=== PATIENT | male | born 1985 | race African-American/Black ===

== ENCOUNTER 2016-11-17 14:22 | Emergency (ER) | payer MEDICAID ==
[~2016-11-17] VITALS: Ht 172.7 cm; Wt 106.8 kg
[2016-11-17 15:56] VITALS: BP 115/80
== END 2016-11-17 17:43 | disposition home or self-care (01) ==
LOC: EMS 14:23
DX: H65.03 Acute serous otitis media, bilateral (principal); Z91.040 Latex allergy status; F17.210 Nicotine dependence, cigarettes, uncomplicated
CPT/HCPCS: 99282; 99406

== ENCOUNTER 2016-12-30 11:52 | Emergency (ER) | payer MEDICAID, OTHER ==
[~2016-12-30] VITALS: Ht 170.2 cm; Wt 106.8 kg
[2016-12-30] MEDS ORDERED: IBUPROFEN 800 MG TABLET PO ONE (15:15)
[2016-12-30 15:45] VITALS: BP 112/64
== END 2016-12-30 16:30 | disposition home or self-care (01) ==
LOC: EMS 11:54
DX: S63.601A Unspecified sprain of right thumb, initial encounter (principal); F17.210 Nicotine dependence, cigarettes, uncomplicated; F12.90 Cannabis use, unspecified, uncomplicated; Z91.040 Latex allergy status; X58.XXXA Exposure to other specified factors, initial encounter; Y93.89 Activity, other specified; Y92.89 Other specified places as the place of occurrence of the external cause; Y99.8 Other external cause status
CPT/HCPCS: 99284

== ENCOUNTER 2017-06-26 20:23 | Emergency (ER) | payer OTHER ==
[~2017-06-26] VITALS: Ht 172.7 cm; Wt 109.1 kg
[2017-06-26] MEDS ORDERED: CEFTAROLINE 600 MG/D5W 250 ML IV ONE (21:45)
[2017-06-26 22:26] LABS: BASOPHILS % (AUTO) 0.8 % (0.0-2.0); EOSINOPHILS % (AUTO) 7.9 % (1.0-6.0); HEMATOCRIT 40.5 % (41-53); HEMOGLOBIN 13.4 g/dL (13.5-17.5); LYMPHOCYTES # (AUTO) 2.4 K/uL (1.0-4.8); LYMPHOCYTES % (AUTO) 32.4 % (22.0-44.0); MEAN CORPUSCULAR HEMOGLOBIN 29.8 pg (26.0-34.0); MEAN CORPUSCULAR HGB CONC 33.1 G/dL (31.0-37.0); MEAN CORPUSCULAR VOLUME 90 fL (80-100); MONOCYTES # (AUTO) 0.6 K/uL (0.1-1.0); MONOCYTES % (AUTO) 8.1 % (2.0-9.0); NEUTROPHILS # (AUTO) 3.7 K/uL (1.8-7.7); NEUTROPHILS % (AUTO) 50.8 % (40.0-70.0); PLATELET COUNT (AUTO) 201 K/uL (150-450); RED CELL DISTRIBUTION WIDTH 13.3 % (11.5-14.5)
[2017-06-26 22:35] LABS: CREATININE 1.64 mg/dL (0.60-1.30); POTASSIUM 3.6 mmol/L (3.5-5.1)
[2017-06-26 22:41] LABS: ALBUMIN 3.7 g/dL (3.4-5.0); BILIRUBIN,TOTAL 0.6 mg/dL (0.1-1.0); TOTAL PROTEIN, SERUM 7.2 g/dL (6.4-8.2)
[2017-06-26 23:40] VITALS: BP 129/76
== END 2017-06-26 23:54 | disposition home or self-care (01) ==
LOC: EMS 20:24
DX: L03.116 Cellulitis of left lower limb (principal); F12.90 Cannabis use, unspecified, uncomplicated; F17.210 Nicotine dependence, cigarettes, uncomplicated; Z91.040 Latex allergy status
CPT/HCPCS: 36415; 80053; 85025; 87070; 87077; 87205; 96365; 96366; 99285; 99406; J0712

== ENCOUNTER 2017-07-12 02:39 | Emergency (ER) | payer OTHER ==
[~2017-07-12] VITALS: Ht 172.7 cm; Wt 113.6 kg
[2017-07-12] MEDS ORDERED: BACTDSB PO (03:32)
[2017-07-12] MEDS ORDERED: CEPH500C2 PO (03:32)
[2017-07-12] MEDS ORDERED: ALBU8.5H8 IH (03:32)
[2017-07-12] MEDS ORDERED: ALBUTEROL SULFATE 2.5 MG/0.5 ML NEB SOLUTION NEB ONE (05:45)
[2017-07-12] MEDS ORDERED: 0.9% SODIUM CHLORIDE 5 ML NEB SOLUTION NEB ONE (05:45)
[2017-07-12] MEDS ORDERED: IPRATROPIUM BROMIDE 0.5 MG/2.5 ML NEB SOLUTION NEB ONE (05:45)
[2017-07-12] MEDS ORDERED: IBUPROFEN 600 MG TABLET PO ONE (05:45)
[2017-07-12] MEDS ORDERED: PredniSONE 20 MG TABLET PO ONE (06:30)
[2017-07-12 08:42] VITALS: BP 130/84
== END 2017-07-12 08:43 | disposition home or self-care (01) ==
LOC: EMS 02:39
DX: J45.901 Unspecified asthma with (acute) exacerbation (principal); F12.90 Cannabis use, unspecified, uncomplicated; F17.210 Nicotine dependence, cigarettes, uncomplicated; Z91.040 Latex allergy status
CPT/HCPCS: 71046; 94640; 99284; 99406; J7512; J7613

== ENCOUNTER 2018-03-17 06:54 | Emergency (ER) | payer OTHER ==
[~2018-03-17] VITALS: Ht 170.2 cm; Wt 109.1 kg
[~2018-03-17 06:54] MED LIST: ALBU8.5H8 IH; BACTDSB PO; CEPH500C2 PO
[2018-03-17] MEDS ORDERED: HYDROCODONE/ACETAMINOPHEN 5-325 MG TABLET PO ONE (08:00)
[2018-03-17] MEDS ORDERED: IBUPROFEN 600 MG TABLET PO ONE (08:00)
[2018-03-17 08:42] VITALS: BP 114/77
== END 2018-03-17 09:03 | disposition home or self-care (01) ==
LOC: EMS 06:55
DX: M79.642 Pain in left hand (principal); F17.210 Nicotine dependence, cigarettes, uncomplicated

== ENCOUNTER 2018-10-20 09:03 | Emergency (ER) | payer SELFPAY ==
[~2018-10-20] VITALS: Ht 170.2 cm; Wt 120.5 kg
[~2018-10-20 09:03] MED LIST changes: -BACTDSB PO; -CEPH500C2 PO
[2018-10-20] MEDS ORDERED: IBUPROFEN 600 MG TABLET PO ONE (11:00)
[2018-10-20 11:31] VITALS: BP 126/78
== END 2018-10-20 12:02 | disposition home or self-care (01) ==
LOC: EMS 09:04
DX: M72.2 Plantar fascial fibromatosis (principal); J45.909 Unspecified asthma, uncomplicated; F12.90 Cannabis use, unspecified, uncomplicated; F17.210 Nicotine dependence, cigarettes, uncomplicated; Z91.040 Latex allergy status
CPT/HCPCS: 99406

== ENCOUNTER 2019-03-14 12:34 | Emergency (ER) | payer MEDICAID ==
[~2019-03-14] VITALS: Ht 172.7 cm; Wt 115.9 kg
[2019-03-14 14:16] LABS: INFLUENZA TYPE A NEGATIVE FOR TYPE A (NEGATIVE); INFLUENZA TYPE B NEGATIVE FOR TYPE B (NEGATIVE)
[2019-03-14] MEDS ORDERED: IBUPROFEN 400 MG TABLET PO ONE (15:00)
[2019-03-14 15:09] VITALS: BP 115/70
== END 2019-03-14 15:12 | disposition home or self-care (01) ==
LOC: EMS 12:38
DX: J11.1 Influenza due to unidentified influenza virus with other respiratory manifestations (principal); J44.9 Chronic obstructive pulmonary disease, unspecified; F17.210 Nicotine dependence, cigarettes, uncomplicated; F12.90 Cannabis use, unspecified, uncomplicated; Z91.040 Latex allergy status
CPT/HCPCS: 87804; 99406

== ENCOUNTER 2019-03-15 04:10 | Emergency (ER) | payer MEDICAID ==
[~2019-03-15] VITALS: Ht 172.7 cm; Wt 115.0 kg
[2019-03-15] MEDS ORDERED: IBUPROFEN 800 MG TABLET PO ONE (04:45)
[2019-03-15] MEDS ORDERED: IPRATROPIUM BROMIDE 0.5 MG/2.5 ML NEB SOLUTION NEB ONE (04:45)
[2019-03-15] MEDS ORDERED: ALBUTEROL SULFATE 5 MG/ML 20 ML NEB SOLN [BULK] NEB ONE (04:45)
[2019-03-15] MEDS ORDERED: ACETAMINOPHEN 500 MG TABLET PO ONE (04:45)
[2019-03-15] MEDS ORDERED: 0.9% SODIUM CHLORIDE 5 ML NEB SOLUTION NEB ONE (05:42)
[2019-03-15 06:38] VITALS: BP 126/79
== END 2019-03-15 06:52 | disposition home or self-care (01) ==
LOC: EMS 04:10
DX: J40 Bronchitis, not specified as acute or chronic (principal); R07.81 Pleurodynia; R00.0 Tachycardia, unspecified; J44.9 Chronic obstructive pulmonary disease, unspecified; F17.210 Nicotine dependence, cigarettes, uncomplicated; F12.90 Cannabis use, unspecified, uncomplicated; Z91.040 Latex allergy status
CPT/HCPCS: 93005; 94640

== ENCOUNTER 2020-12-20 11:23 | Emergency (ER) | payer MEDICAID, OTHER ==
[~2020-12-20] VITALS: Ht 172.7 cm; Wt 122.7 kg
[2020-12-20] MEDS: HYDROCODONE/ACETAMINOPHEN 5-325 MG TABLET PO ONE (14:11)
[2020-12-20 14:59] VITALS: BP 127/80
== END 2020-12-20 15:07 | disposition home or self-care (01) ==
LOC: EMS 11:25
DX: S60.221A Contusion of right hand, initial encounter (principal); F12.90 Cannabis use, unspecified, uncomplicated; Z91.040 Latex allergy status; W22.8XXA Striking against or struck by other objects, initial encounter; Y93.89 Activity, other specified; Y92.89 Other specified places as the place of occurrence of the external cause; Y99.8 Other external cause status
CPT/HCPCS: 99284; 73110-TC; 73130-TC; Z7502; Z7610

== ENCOUNTER 2021-08-27 01:42 | Emergency (ER) | payer OTHER ==
[~2021-08-27] VITALS: Ht 170.2 cm; Wt 118.2 kg
[2021-08-27 03:05] LABS: BASOPHILS % (AUTO) 0.9 % (0.0-2.0); EOSINOPHILS % (AUTO) 3.2 % (1.0-6.0); HEMATOCRIT 37.4 % (41-53); HEMOGLOBIN 12.4 g/dL (13.5-17.5); LYMPHOCYTES # (AUTO) 1.7 K/uL (1.0-4.8); LYMPHOCYTES % (AUTO) 32.7 % (22.0-44.0); MEAN CORPUSCULAR HEMOGLOBIN 29.3 pg (26.0-34.0); MEAN CORPUSCULAR VOLUME 89 fL (80-100); MONOCYTES # (AUTO) 0.4 K/uL (0.1-1.0); MONOCYTES % (AUTO) 8.7 % (2.0-9.0); NEUTROPHILS # (AUTO) 2.8 K/uL (1.8-7.7); NEUTROPHILS % (AUTO) 54.5 % (40.0-70.0); PLATELET COUNT (AUTO) 220 K/uL (150-450); RED BLOOD CELL COUNT(AUTO) 4.22 MIL/uL (4.50-5.90); RED CELL DISTRIBUTION WIDTH 13.8 % (11.5-14.5)
[2021-08-27 03:15] LABS: ANION GAP 8 mmol/L (8-16); CALCIUM, TOTAL 8.9 mg/dL (8.8-10.5); CARBON DIOXIDE 27 mmol/L (22-29); CHLORIDE 106 mmol/L (98-107); CREATININE 1.53 mg/dL (0.60-1.30); GLOMERULAR FILTR. RATE CALC > 60 mL/min (>60); GLUCOSE,RANDOM 91 mg/dL (70-110); POTASSIUM 3.8 mmol/L (3.5-5.1); SODIUM SERUM 141 mmol/L (136-145); UREA NITROGEN, BLOOD 15 mg/dL (7-18)
[2021-08-27 03:20] LABS: ALANINE AMINOTRANSFERASE 28 U/L (12-78); ALBUMIN 3.4 g/dL (3.4-5.0); ALKALINE PHOSPHATASE 79 U/L (46-116); ASPARTATE AMINOTRANSFERASE 20 U/L (15-37); BILIRUBIN,TOTAL 0.6 mg/dL (0.1-1.0); TOTAL PROTEIN, SERUM 6.5 g/dL (6.4-8.2)
[2021-08-27 03:21] LABS: B-TYPE NATRIURETIC PEPTIDE 10 pg/mL (0-100)
[2021-08-27] MEDS ORDERED: LORA-1000 PO (04:26)
[2021-08-27] MEDS ORDERED: KETOROLAC TROMETHAMINE 30 MG/ML VIAL IVP ONE (04:30)
[2021-08-27] MEDS ORDERED: LORazepam 1 MG TABLET PO ONE (04:30)
[2021-08-27 04:51] VITALS: BP 126/70
== END 2021-08-27 04:51 | disposition home or self-care (01) ==
LOC: EMS 01:43
DX: R07.89 Other chest pain (principal); F41.9 Anxiety disorder, unspecified; F12.90 Cannabis use, unspecified, uncomplicated; Z98.890 Other specified postprocedural states; Z91.040 Latex allergy status
CPT/HCPCS: 36415; 71045; 80053; 83880; 84484; 85025; 93005; 96374; 99285; G0480; J1885

== ENCOUNTER 2021-09-15 11:29 | Emergency (ER) | payer OTHER ==
[~2021-09-15] VITALS: Ht 170.2 cm; Wt 120.0 kg
[~2021-09-15 11:29] MED LIST changes: +LORA-1000 PO
[2021-09-15] MEDS ORDERED: KETOROLAC TROMETHAMINE 30 MG/ML VIAL IM ONE (16:30)
[2021-09-15 17:00] VITALS: BP 112/81
[2021-09-15] MEDS ORDERED: IBUP-2070 PO (18:20)
== END 2021-09-15 19:18 | disposition home or self-care (01) ==
LOC: EMS 11:29
DX: M79.671 Pain in right foot (principal); F41.9 Anxiety disorder, unspecified; F12.90 Cannabis use, unspecified, uncomplicated; Z98.890 Other specified postprocedural states; Z91.040 Latex allergy status
CPT/HCPCS: 99283; 73630; 96372; J1885

== ENCOUNTER 2021-12-08 09:40 | Emergency (ER) | payer OTHER ==
[~2021-12-08] VITALS: Ht 170.2 cm; Wt 116.8 kg
[~2021-12-08 09:40] MED LIST changes: +IBUP-2070 PO
[2021-12-08] MEDS ORDERED: KETOROLAC TROMETHAMINE 60 MG/2 ML VIAL IM ONE (11:15)
[2021-12-08] MEDS ORDERED: IBUP-2070 PO (12:36)
[2021-12-08 12:45] VITALS: BP 118/64
== END 2021-12-08 13:18 | disposition home or self-care (01) ==
LOC: EMS 09:42
DX: S83.422A Sprain of lateral collateral ligament of left knee, initial encounter (principal); F41.9 Anxiety disorder, unspecified; F12.90 Cannabis use, unspecified, uncomplicated; Z91.040 Latex allergy status; Z87.891 Personal history of nicotine dependence; Z91.012 Allergy to eggs; X58.XXXA Exposure to other specified factors, initial encounter; Y93.89 Activity, other specified; Y92.89 Other specified places as the place of occurrence of the external cause; Y99.8 Other external cause status
CPT/HCPCS: 99283; 29505; 73562; 96372; J1885

== ENCOUNTER 2022-05-13 20:44 | Emergency (ER) | payer OTHER ==
[~2022-05-13] VITALS: Ht 170.2 cm; Wt 120.0 kg
[~2022-05-13 20:44] MED LIST changes: +IBUP-1492 PO; -IBUP-2070 PO
[2022-05-13 23:44] VITALS: BP 113/76
[2022-05-14] MEDS ORDERED: IBUP-1492 PO (00:13)
[2022-05-14] MEDS ORDERED: IBUPROFEN 600 MG TABLET PO ONE (00:15)
== END 2022-05-14 00:31 | disposition home or self-care (01) ==
LOC: EMS 20:45
DX: M79.671 Pain in right foot (principal); M67.471 Ganglion, right ankle and foot; F41.9 Anxiety disorder, unspecified; F12.90 Cannabis use, unspecified, uncomplicated; Z98.890 Other specified postprocedural states; Z91.040 Latex allergy status; Z91.012 Allergy to eggs; Z91.030 Bee allergy status
CPT/HCPCS: 99283